=== PATIENT | female | born 1935 | race Caucasian/White ===

== ENCOUNTER 2017-10-25 12:04 | Inpatient (IN) | payer OTHER ==
[~2017-10-25] VITALS: Ht 172.7 cm; Wt 78.2 kg
[~2017-10-25 12:04] MED LIST: ALT2.5 PO; CALCIUM1 TA1 PO; FLAGYL500 MG PO; KLOR-CON 88 MEQ PO; KLOR-CON20 MEQ PO; LAC PO; LEVAQUIN750 MG PO; LIPI20 PO; PLA75 PO; PREDNISONE20 MG PO; SINGULAIR10 MG PO; WILL BRING LIST
[2017-10-25 12:58] LABS: UA SPECIFIC GRAVITY 1.015 (1.005-1.035); microscopic required? YES; urine erythrocyte TRACE (NEGATIVE)
[2017-10-25 13:30] LABS: PLATELET COUNT 234 x10^3mcL (130-400)
[2017-10-25 13:37] LABS: BASOPHIL % 0 % (0-2); RED CELL DISTRIBUTION WIDTH 15.7 % (11.5-14.5)
[2017-10-25 14:09] LABS: ALKALINE PHOSPHATASE 80 U/L (46-116); ALT/SGPT 30 U/L (14-59); AST/SGOT 15 U/L (15-37); BILIRUBIN TOTAL 0.6 mg/dL (0.20-1.00); CALCIUM 8.2 mg/dL (8.5-10.1); CARBON DIOXIDE 24.1 mmol/L (21-32); CHLORIDE SERUM 104 mmol/L (98-107); CREATININE SERUM 0.9 mg/dL (0.6-1.0); GLUCOSE SERUM 134 mg/dL (74-106); LIPASE 91 IU/L (73-393); POTASSIUM SERUM 3.7 mmol/L (3.5-5.1); SODIUM SERUM 140 mmol/L (136-145)
[2017-10-25 14:14] LABS: FREE T4 1.16 ng/dL (0.76-1.46)
[2017-10-25 16:18] LABS: MAGNESIUM 1.7 mg/dL (1.8-2.4); PHOSPHOROUS 3.1 mg/dL (2.5-4.9)
[2017-10-25 17:02] VITALS: BP 107/63
[2017-10-25] MEDS ORDERED: FERROUS SULFAT325 M2 PO (17:24)
[2017-10-25] MEDS ORDERED: ZYRTEC10 MG PO (17:25)
[2017-10-25 19:52] VITALS: BP 108/68
[2017-10-25 22:05] VITALS: BP 113/55
[2017-10-26] VITALS (8 sets, daily range): BP systolic 95–132; BP diastolic 52–73; Ht 172.7 cm; Wt 78.2 kg
[2017-10-26 05:12] LABS: BASOPHIL % 0.7 % (0-2); PLATELET COUNT 213 x10^3mcL (130-400)
[2017-10-26 05:19] LABS: RED CELL DISTRIBUTION WIDTH 15.8 % (11.5-14.5)
[2017-10-26 05:20] LABS: CALCIUM 7.8 mg/dL (8.5-10.1); CARBON DIOXIDE 23.6 mmol/L (21-32); CHLORIDE SERUM 108 mmol/L (98-107); CREATININE SERUM 0.8 mg/dL (0.6-1.0); GLUCOSE SERUM 126 mg/dL (74-106); MAGNESIUM 1.9 mg/dL (1.8-2.4); PHOSPHOROUS 2.9 mg/dL (2.5-4.9); POTASSIUM SERUM 3.4 mmol/L (3.5-5.1); SODIUM SERUM 142 mmol/L (136-145)
[2017-10-27] VITALS (8 sets, daily range): BP systolic 94–141; BP diastolic 53–78
[2017-10-27 06:56] LABS: BASOPHIL % 0.2 % (0-2); PLATELET COUNT 185 x10^3mcL (130-400)
[2017-10-27 07:03] LABS: CALCIUM 7.8 mg/dL (8.5-10.1); CARBON DIOXIDE 24.6 mmol/L (21-32); CHLORIDE SERUM 107 mmol/L (98-107); CREATININE SERUM 0.7 mg/dL (0.6-1.0); GLUCOSE SERUM 141 mg/dL (74-106); MAGNESIUM 2.2 mg/dL (1.8-2.4); PHOSPHOROUS 1.9 mg/dL (2.5-4.9); POTASSIUM SERUM 3.3 mmol/L (3.5-5.1); SODIUM SERUM 140 mmol/L (136-145)
[2017-10-27 14:32] LABS: AMYLASE 29 U/L (25-115); LIPASE 68 IU/L (73-393)
[2017-10-28 03:10] VITALS: BP 129/65
[2017-10-28 05:40] LABS: PLATELET COUNT 199 x10^3mcL (130-400)
[2017-10-28 05:45] LABS: BASOPHIL % 0 % (0-2); RED CELL DISTRIBUTION WIDTH 15.9 % (11.5-14.5)
[2017-10-28 06:06] LABS: CALCIUM 8.3 mg/dL (8.5-10.1); CARBON DIOXIDE 23.8 mmol/L (21-32); CHLORIDE SERUM 107 mmol/L (98-107); CREATININE SERUM 0.8 mg/dL (0.6-1.0); GLUCOSE SERUM 245 mg/dL (74-106); POTASSIUM SERUM 4.4 mmol/L (3.5-5.1); SODIUM SERUM 141 mmol/L (136-145)
[2017-10-28 07:30] VITALS: BP 100/66
[2017-10-28 11:30] VITALS: BP 128/67
[2017-10-28 20:49] VITALS: BP 134/65
[2017-10-29 06:30] VITALS: BP 120/57
[2017-10-29 08:14] VITALS: BP 120/57
[2017-10-29 09:19] VITALS: BP 131/63
[2017-10-29 12:28] VITALS: BP 118/52
[2017-10-29] MEDS ORDERED: AMIODARONE HCL200 MG PO (12:55)
[2017-10-29] MEDS ORDERED: LEVAQUIN250 M1 PO (12:56)
[2017-10-29] MEDS ORDERED: ASPIR 8181 MG PO (12:57)
[2017-10-29] MEDS ORDERED: AMIODARONE HYD200 M1 PO (12:57)
[2017-10-29 13:36] VITALS: BP 118/52
== END 2017-10-29 14:20 | disposition home or self-care (01) | DRG 871 ==
LOC: ED 12:04 → IC 14:35 → DU 10-26 12:27 → IC 10-27 09:02 → DU 10-28 15:45
PROVIDERS: Emergency Medicine; Internal Medicine
DX: A41.9 Sepsis, unspecified organism (principal); N17.0 Acute kidney failure with tubular necrosis; N39.0 Urinary tract infection, site not specified; I48.92 Unspecified atrial flutter; E44.1 Mild protein-calorie malnutrition; D68.69 Other thrombophilia; R65.20 Severe sepsis without septic shock; I48.91 Unspecified atrial fibrillation; E86.0 Dehydration; E83.42 Hypomagnesemia; E83.39 Other disorders of phosphorus metabolism; E83.51 Hypocalcemia; E87.6 Hypokalemia; E11.65 Type 2 diabetes mellitus with hyperglycemia; K59.00 Constipation, unspecified; J45.909 Unspecified asthma, uncomplicated; M19.90 Unspecified osteoarthritis, unspecified site; Z68.25 Body mass index [BMI] 25.0-25.9, adult; Z79.52 Long term (current) use of systemic steroids; Z79.4 Long term (current) use of insulin
CPT/HCPCS: 83880; 84439; 94150; 97110-GP; 97116-GP; 97530-GP; 97535-GP; C9113; J0282; J1160; J1644; J1720; J1815; J1885; J1956; J2405; J2543; J2550; J2920; J3370; J3490; J7030; J7512; J7620; Q0092; Q0162; Q0163; Q9958; Q9966; Q9967

== ENCOUNTER 2017-12-08 09:47 | Inpatient (IN) | payer OTHER ==
[~2017-12-08] VITALS: Ht 160 cm; Wt 78.0 kg
[~2017-12-08 09:47] MED LIST changes: +AMIODARONE HCL200 MG PO; +AMIODARONE HYD200 M1 PO; +ASPIR 8181 MG PO; +FERROUS SULFAT325 M2 PO; +LEVAQUIN250 M1 PO; +ZYRTEC10 MG PO
[2017-12-08 09:50] VITALS: Ht 160 cm; Wt 78.0 kg
[2017-12-08 10:41] LABS: PLATELET COUNT 237 x10^3mcL (130-400)
[2017-12-08 10:42] LABS: RED CELL DISTRIBUTION WIDTH 16.1 % (11.5-14.5)
[2017-12-08 11:12] LABS: CALCIUM 8.9 mg/dL (8.5-10.1); CARBON DIOXIDE 23.5 mmol/L (21-32); CHLORIDE SERUM 103 mmol/L (98-107); CREATININE SERUM 1.2 mg/dL (0.6-1.0); GLUCOSE SERUM 237 mg/dL (74-106); POTASSIUM SERUM 4.1 mmol/L (3.5-5.1); SODIUM SERUM 139 mmol/L (136-145)
[2017-12-08 11:17] LABS: ALKALINE PHOSPHATASE 80 U/L (46-116); ALT/SGPT 34 U/L (14-59); AST/SGOT 22 U/L (15-37); BILIRUBIN TOTAL 0.75 mg/dL (0.20-1.00); TOTAL PROTEIN, SERUM 6.5 g/dL (6.4-8.2)
[2017-12-08 11:36] LABS: ALBUMIN 3.1 g/dL (3.4-5.0)
[2017-12-08 12:13] LABS: BAND NEUTROPHIL 22 % (0-10); BASOPHIL 0 % (0-2); METAMYELOCTE 1 % (0-2); MONOCYTE 4 % (0-7); SEGMENTED NEUTROPHILS 68 % (37-75)
[2017-12-08 12:14] LABS: PLATELET MORPHOLOGY LARGE PLATELET SEEN; rbc morphology (normal/abnorm) NORMAL (NORMAL)
[2017-12-08 12:54] LABS: UA SPECIFIC GRAVITY <=1.005 (1.005-1.035); microscopic required? YES; urine erythrocyte TRACE (NEGATIVE)
[2017-12-08 13:47] VITALS: BP 114/51
[2017-12-08 14:36] LABS: FREE T4 1.23 ng/dL (0.76-1.46); FREE THYROXINE INDEX 3.3 ug/dL (1.4-4.5); T4(THYROXINE) 9.1 ug/dL (4.7-13.3)
[2017-12-08 14:38] LABS: T3 TOTAL 0.8 ng/mL
[2017-12-08 14:52] LABS: MAGNESIUM 1.5 mg/dL (1.8-2.4); PHOSPHOROUS 4.6 mg/dL (2.5-4.9)
[2017-12-08 14:54] LABS: CHOLESTEROL/HDL RATIO 2.1
[2017-12-08 16:53] VITALS: BP 100/57; BP 114/51
[2017-12-08 20:06] LABS: AMPHETAMINE QUAL UR NONE DETECTED (See below)
[2017-12-09 05:47] VITALS: BP 139/75
[2017-12-09 06:49] LABS: PLATELET COUNT 197 x10^3mcL (130-400)
[2017-12-09 06:55] LABS: CALCIUM 7.5 mg/dL (8.5-10.1); CARBON DIOXIDE 23.4 mmol/L (21-32); CHLORIDE SERUM 106 mmol/L (98-107); CREATININE SERUM 0.8 mg/dL (0.6-1.0); GLUCOSE SERUM 268 mg/dL (74-106); MAGNESIUM 2.4 mg/dL (1.8-2.4); POTASSIUM SERUM 4.5 mmol/L (3.5-5.1); SODIUM SERUM 140 mmol/L (136-145)
[2017-12-09 08:16] LABS: BASOPHIL % 0 % (0-2); RED CELL DISTRIBUTION WIDTH 16.9 % (11.5-14.5)
[2017-12-09 08:24] VITALS: BP 123/61
[2017-12-09 12:06] VITALS: BP 109/53
[2017-12-09 16:58] VITALS: BP 113/50
[2017-12-09 21:12] VITALS: BP 114/47
[2017-12-10 05:47] VITALS: BP 123/56
[2017-12-10 08:44] VITALS: BP 120/56
[2017-12-10 12:41] LABS: PLATELET COUNT 208 x10^3mcL (130-400)
[2017-12-10 12:42] LABS: BASOPHIL % 0 % (0-2); RED CELL DISTRIBUTION WIDTH 16.6 % (11.5-14.5)
[2017-12-10 12:46] LABS: CALCIUM 8.8 mg/dL (8.5-10.1); CARBON DIOXIDE 28.8 mmol/L (21-32); CHLORIDE SERUM 108 mmol/L (98-107); CREATININE SERUM 0.8 mg/dL (0.6-1.0); GLUCOSE SERUM 240 mg/dL (74-106); POTASSIUM SERUM 4.5 mmol/L (3.5-5.1); SODIUM SERUM 143 mmol/L (136-145)
[2017-12-10 13:40] VITALS: BP 132/60
[2017-12-10 17:18] VITALS: BP 130/64
[2017-12-10 20:39] VITALS: BP 147/77
[2017-12-11 05:33] VITALS: BP 138/64
[2017-12-11 06:50] LABS: BASOPHIL % 0.3 % (0-2); CARBON DIOXIDE 30.8 mmol/L (21-32); CHLORIDE SERUM 109 mmol/L (98-107); CREATININE SERUM 0.7 mg/dL (0.6-1.0); GLUCOSE SERUM 103 mg/dL (74-106); PLATELET COUNT 201 x10^3mcL (130-400); POTASSIUM SERUM 3.5 mmol/L (3.5-5.1); SODIUM SERUM 146 mmol/L (136-145)
[2017-12-11 06:53] LABS: RED CELL DISTRIBUTION WIDTH 16.5 % (11.5-14.5)
[2017-12-11 09:44] VITALS: BP 131/65
[2017-12-11 09:58] VITALS: BP 131/65
[2017-12-11] MEDS ORDERED: LEVAQUIN750 MG PO (10:45)
[2017-12-11] MEDS ORDERED: FLA500 PO (10:45)
[2017-12-11] MEDS ORDERED: LAC PO (10:45)
[2017-12-11 11:00] VITALS: BP 131/65
== END 2017-12-11 11:56 | disposition home or self-care (01) | DRG 853 ==
LOC: ED 09:47 → DU 12:43 → MU 12:43 → EDBEDREQ 12:58 → DU 13:33 → MU 13:36 → DU 13:47
PROVIDERS: Emergency Medicine; Family Medicine; General Practice; Surgery
PROC: 0DTJ4ZZ Resection of Appendix, Percutaneous Endoscopic Approach (ICD-10-PCS; principal; 2017-12-08 18:00)
DX: A41.9 Sepsis, unspecified organism (principal); N17.0 Acute kidney failure with tubular necrosis; K35.32 Acute appendicitis with perforation, localized peritonitis, and gangrene, without abscess; E44.0 Moderate protein-calorie malnutrition; I31.3 Pericardial effusion (noninflammatory); R65.20 Severe sepsis without septic shock; E11.8 Type 2 diabetes mellitus with unspecified complications; E83.42 Hypomagnesemia; J45.909 Unspecified asthma, uncomplicated; Z66 Do not resuscitate; Z99.81 Dependence on supplemental oxygen; Z68.24 Body mass index [BMI] 24.0-24.9, adult
CPT/HCPCS: 82962; 84439; 90658; 94150; J0330; J0696; J1170; J2175; J2250; J2543; J2704; J3010; J3475; J3490; J7030; J7512; J7620; Q0092; Q0163; Q9967

== ENCOUNTER 2018-05-17 20:34 | Inpatient (IN) | payer OTHER ==
[~2018-05-17] VITALS: Ht 160 cm; Wt 74.4 kg
[~2018-05-17 20:34] MED LIST changes: +FLA500 PO
[2018-05-17 20:36] VITALS: Ht 160 cm; Wt 74.4 kg
[2018-05-17 21:00] LABS: PLATELET COUNT 228 x10^3mcL (130-400)
[2018-05-17 21:04] LABS: BASOPHIL % 0 % (0-2); RED CELL DISTRIBUTION WIDTH 16.8 % (11.5-14.5)
[2018-05-17 21:22] LABS: CALCIUM 9.5 mg/dL (8.5-10.1); CARBON DIOXIDE 24.7 mmol/L (21-32); CHLORIDE SERUM 102 mmol/L (98-107); CREATININE SERUM 1.1 mg/dL (0.6-1.0); GLUCOSE SERUM 141 mg/dL (74-106); POTASSIUM SERUM 4.3 mmol/L (3.5-5.1); SODIUM SERUM 138 mmol/L (136-145)
[2018-05-17 21:26] LABS: ALKALINE PHOSPHATASE 122 U/L (46-116); ALT/SGPT 28 U/L (14-59); AST/SGOT 23 U/L (15-37); BILIRUBIN TOTAL 0.6 mg/dL (0.20-1.00); TOTAL PROTEIN, SERUM 7.1 g/dL (6.4-8.2)
[2018-05-17 21:28] LABS: ALBUMIN 3.1 g/dL (3.4-5.0)
[2018-05-17 23:03] LABS: PHOSPHOROUS 3.3 mg/dL (2.5-4.9)
[2018-05-17 23:13] LABS: FREE T4 1.17 ng/dL (0.76-1.46); FREE THYROXINE INDEX 3.1 ug/dL (1.4-4.5); T4(THYROXINE) 9.1 ug/dL (4.7-13.3)
[2018-05-17 23:36] LABS: microscopic required? YES; urine erythrocyte 1+ (NEGATIVE)
[2018-05-17 23:43] LABS: AMPHETAMINE QUAL UR NONE DETECTED (See below)
[2018-05-17 23:50] VITALS: BP 123/75
[2018-05-17 23:55] VITALS: BP 123/75
[2018-05-18 00:30] VITALS: BP 123/75
[2018-05-18 00:49] LABS: T3 TOTAL 1.2 ng/mL
[2018-05-18 05:50] VITALS: BP 122/63
[2018-05-18 06:57] LABS: PLATELET COUNT 200 x10^3mcL (130-400)
[2018-05-18 07:14] LABS: CALCIUM 8.6 mg/dL (8.5-10.1); CARBON DIOXIDE 25.9 mmol/L (21-32); CHLORIDE SERUM 106 mmol/L (98-107); CREATININE SERUM 0.9 mg/dL (0.6-1.0); GLUCOSE SERUM 322 mg/dL (74-106); MAGNESIUM 2.1 mg/dL (1.8-2.4); POTASSIUM SERUM 4.7 mmol/L (3.5-5.1); SODIUM SERUM 142 mmol/L (136-145)
[2018-05-18 07:21] LABS: RED CELL DISTRIBUTION WIDTH 16.5 % (11.5-14.5)
[2018-05-18 08:50] VITALS: BP 101/56
[2018-05-18 10:49] LABS: BAND NEUTROPHIL 18 % (0-10); BASOPHIL 0 % (0-2); MONOCYTE 2 % (0-7); SEGMENTED NEUTROPHILS 78 % (37-75)
[2018-05-18 10:51] LABS: PLATELET MORPHOLOGY LARGE PLATELET SEEN; rbc morphology (normal/abnorm) NORMAL (NORMAL)
[2018-05-18 16:30] VITALS: BP 115/52
[2018-05-18 21:10] VITALS: BP 121/56
[2018-05-19 05:09] VITALS: BP 134/66
[2018-05-19 06:22] LABS: PLATELET COUNT 210 x10^3mcL (130-400)
[2018-05-19 06:39] LABS: CALCIUM 8.3 mg/dL (8.5-10.1); CARBON DIOXIDE 24.6 mmol/L (21-32); CHLORIDE SERUM 110 mmol/L (98-107); CREATININE SERUM 0.6 mg/dL (0.6-1.0); GLUCOSE SERUM 305 mg/dL (74-106); MAGNESIUM 2.2 mg/dL (1.8-2.4); PHOSPHOROUS 2.6 mg/dL (2.5-4.9); POTASSIUM SERUM 3.8 mmol/L (3.5-5.1); SODIUM SERUM 143 mmol/L (136-145)
[2018-05-19 06:48] LABS: RED CELL DISTRIBUTION WIDTH 16.5 % (11.5-14.5)
[2018-05-19 08:30] VITALS: BP 110/60
[2018-05-19 11:37] LABS: BAND NEUTROPHIL 12 % (0-10); BASOPHIL 0 % (0-2); MONOCYTE 4 % (0-7); SEGMENTED NEUTROPHILS 81 % (37-75)
[2018-05-19 11:38] LABS: PLATELET MORPHOLOGY PLATELETS NORMAL; rbc morphology (normal/abnorm) ABNORMAL (NORMAL)
[2018-05-19 12:02] VITALS: BP 121/73
[2018-05-19] MEDS ORDERED: BACDS PO (12:30)
[2018-05-19 13:24] VITALS: BP 121/73
== END 2018-05-19 14:35 | disposition home or self-care (01) | DRG 871 ==
LOC: ED 20:34 → DU 22:13
PROVIDERS: Emergency Medicine; ADMIT Internal Medicine
DX: A41.9 Sepsis, unspecified organism (principal); J18.9 Pneumonia, unspecified organism; J96.01 Acute respiratory failure with hypoxia; N17.0 Acute kidney failure with tubular necrosis; N39.0 Urinary tract infection, site not specified; E44.0 Moderate protein-calorie malnutrition; J45.901 Unspecified asthma with (acute) exacerbation; E87.4 Mixed disorder of acid-base balance; E87.2 Acidosis; E11.65 Type 2 diabetes mellitus with hyperglycemia; I10 Essential (primary) hypertension; Z68.25 Body mass index [BMI] 25.0-25.9, adult; R65.20 Severe sepsis without septic shock
CPT/HCPCS: 82962; 83880; 84439; 87804; 94150; J0696; J1815; J2543; J2920; J2930; J7030; J7620; J7626; Q0092

== ENCOUNTER 2018-08-08 21:11 | Inpatient (IN) | payer OTHER ==
[~2018-08-08] VITALS: Ht 172.7 cm; Wt 71.7 kg
[~2018-08-08 21:11] MED LIST changes: +BACDS PO
[2018-08-08 21:22] VITALS: Ht 172.7 cm; Wt 71.7 kg
--- NOTE | 2018-08-08 21:22 | NUR ---
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 PER PT HISTORY OF COPD AND PT STATES "IT FEELS LIKE A COPD FLARE UP". PT ABLE TO SPEAK FULL CLEAR SENTENCES BUT STILL C/O OF SOB. PT A&0X4 IN NAD. IV PLACED TO LEFT WRIST FINE DINING SERVER. PT PLACED ON 6L VIA NC. PER MEDIC PT TOOK ALBUTEROL TREATMENT FINE DINING SERVER TO ASSIST WITH SOB WITH MINIMAL IMPROVEMENT. AWAITING MSE. WILL CONTINUE TO MONITOR.
--- NOTE | 2018-08-08 22:32 | NUR ---
LAB AT BEDSIDE.
--- NOTE | 2018-08-08 22:40 | NUR ---
RT AT BEDSIDE FOR BREATHING TREATMENT
[2018-08-08 22:53] LABS: BASOPHIL % 0.7 % (0-2); PLATELET COUNT 227 x10^3mcL (130-400)
[2018-08-08 22:56] LABS: RED CELL DISTRIBUTION WIDTH 16.3 % (11.5-14.5)
[2018-08-08 23:04] LABS: CALCIUM 9.3 mg/dL (8.5-10.1); CARBON DIOXIDE 25.9 mmol/L (21-32); CHLORIDE SERUM 101 mmol/L (98-107); CREATININE SERUM 0.9 mg/dL (0.6-1.0); GLUCOSE SERUM 157 mg/dL (74-106); POTASSIUM SERUM 4.3 mmol/L (3.5-5.1); SODIUM SERUM 137 mmol/L (136-145)
[2018-08-08 23:08] LABS: ALKALINE PHOSPHATASE 112 U/L (46-116); ALT/SGPT 47 U/L (14-59); AST/SGOT 23 U/L (15-37); BILIRUBIN TOTAL 0.8 mg/dL (0.20-1.00); TOTAL PROTEIN, SERUM 6.5 g/dL (6.4-8.2)
[2018-08-08 23:09] LABS: ALBUMIN 3.1 g/dL (3.4-5.0)
[2018-08-08 23:20] LABS: CK-MB 0.9 ng/mL (0-3.6)
--- NOTE | 2018-08-08 23:25 | NUR ---
ASSISTED PT TO BEDSIDE COMMODE. PT STEADY ON FEET, MINIMAL ASSITANCE NEEDED. PT ASSITED BACK TO BED. NO INCIDENCES NOTED. CM AND [address] FAMILY AT BEDSIDE. WILL CONTINUE TO MONITOR.
[2018-08-09 01:11] LABS: UA SPECIFIC GRAVITY <=1.005 (1.005-1.035); microscopic required? YES; urine erythrocyte TRACE (NEGATIVE)
--- NOTE | 2018-08-09 02:19 | NUR ---
REPORT CALLED TO JESSICA THOMPSON.
[2018-08-09 02:20] LABS: CHOLESTEROL/HDL RATIO 2.4
--- NOTE | 2018-08-09 02:25 | NUR ---
PT TAKEN TO TELE BED 224B ACCOMPANIED BY CLARK SIMON AND GERRI RN. PT A&0X4, SPEAKING FULL CLEAR SENTENCES. PT IN NAD. BREATHING EVEN AND UNLABORED. ROCEPHIN IV ENDORSED TO JESSICA THOMPSON. PT TRANSFERED VIA [facility].
[2018-08-09 02:30] VITALS: BP 119/49
--- NOTE | 2018-08-09 02:30 | NUR ---
RECEIVED PT FROM ED. PT AOX4. DENIES DE LA TORRE/DIZZINESS. PLACED PT ON TELE #12, READING NSR. DENIES CP/PRESSURE. DENIES SOB/DIFFICULTY BREATHING, ON 3L NC. IV TO L. WRIST, INTACT AND PATENT. BED IN LOWEST POSITION. CALL LIGHT WITHIN REACH. WILL CONTINUE TO MONITOR.
[2018-08-09 02:40] VITALS: BP 119/49
--- NOTE | 2018-08-09 04:35 | NUR ---
PT RESTING IN BED. RR EVEN AND UNLABORED. NO ACUTE DISTRESS NOTED. CALL LIGHT WITHIN REACH. BED IN LOWEST POSITIN. WILL CONTINUE TO MONITOR.
--- NOTE | 2018-08-09 06:35 | NUR ---
PT IV LEAKING. NO REDNESS/SWELLING NOTED. IV CATHETER REMOVED, TIP INTACT.
[2018-08-09 07:07] LABS: BASOPHIL % 0.2 % (0-2); PLATELET COUNT 222 x10^3mcL (130-400)
[2018-08-09 07:10] LABS: RED CELL DISTRIBUTION WIDTH 16.7 % (11.5-14.5)
[2018-08-09 07:27] LABS: CALCIUM 9.1 mg/dL (8.5-10.1); CARBON DIOXIDE 21.7 mmol/L (21-32); CHLORIDE SERUM 106 mmol/L (98-107); CREATININE SERUM 0.9 mg/dL (0.6-1.0); GLUCOSE SERUM 352 mg/dL (74-106); MAGNESIUM 2.2 mg/dL (1.8-2.4); PHOSPHOROUS 4.4 mg/dL (2.5-4.9); POTASSIUM SERUM 4.6 mmol/L (3.5-5.1); SODIUM SERUM 141 mmol/L (136-145)
--- NOTE | 2018-08-09 07:40 | NUR ---
PATIENT RESTING IN BED, NO ACUTE DISTRESS NOTED. FAMILY AT BEDSIDE. PATIENT DENIES SOB, ON 2L NC. TELE MONITOR IN PLACE, DENIES CHEST PAIN. PATIENT IS AMBULATORY. NS IV INFUSING AT 70ML/HR TO RFA, IV SITE CDI & PATENT, NO S/S OF INFILTRATION. CALL LIGHT WITHIN REACH, BED IN LOW POSITION, WILL CONTINUE TO MONITOR FOR CHANGES.
[2018-08-09 09:50] VITALS: BP 107/56
--- NOTE | 2018-08-09 09:55 | NUR ---
ASSISTED PATIENT TO THE BATHROOM, STEADY, SLOW GAIT NOTED. PATIENT FELT SOB ON EXCERTION, WHEEZES NOTED ON EXPIRATION. RESPIRATORY THERAPIST NOTIFIED. WILL CONTINUE TO MONITOR FOR CHANGES. CALL LIGHT WITHIN REACH, BED IN LOW POSITION FOR SAFETY PRECAUTION.
--- NOTE | 2018-08-09 11:20 | NUR ---
PATIENT AMBULATING HALLWAYS WITH PHYSICAL THERAPY AT THIS TIME.
[2018-08-09] MEDS ORDERED: KEFLEX500 M1 PO (12:41)
[2018-08-09] MEDS ORDERED: LAC PO (12:42)
[2018-08-09] MEDS ORDERED: MEDDP PO (12:42)
[2018-08-09 13:26] VITALS: BP 119/56
--- NOTE | 2018-08-09 14:10 | NUR ---
PATIENT WAS DISCHARGED HOME, TAKEN DOWN VIA WHEELCHAIR BY CAUSTIC ROOM OPERATOR. PATIENT DENIES SOB, 95% PULSE OX ON ROOM AIR. PATIENT AND RECEIVED COPY OF DISCHARGED INSTRUCTIONS. PATIENT & HUSBANDS UNDERSTAND AND AGREE WITH PLAN OF CARE AND INSTRUCTIONS, INCLUDING FOLLOW UP CARE & MEDICATIONS. IV TO RFA REMOVED, CATH INTACT. TELE MONITOR AND ARMBAND REMOVED. ALL QUESTIONS AND CONCERNS ADDRESSED. PATIENT TOOK HOME ALL PERSONAL BELONGINGS.
== END 2018-08-09 14:10 | disposition home or self-care (01) | DRG 190 ==
LOC: ED 21:11 → DU 08-09 01:07 → MU 08-09 01:07
PROVIDERS: Emergency Medicine; ADMIT Internal Medicine
DX: J44.1 Chronic obstructive pulmonary disease with (acute) exacerbation (principal); J96.01 Acute respiratory failure with hypoxia; N17.0 Acute kidney failure with tubular necrosis; N39.0 Urinary tract infection, site not specified; E44.0 Moderate protein-calorie malnutrition; E11.65 Type 2 diabetes mellitus with hyperglycemia; D72.829 Elevated white blood cell count, unspecified; I10 Essential (primary) hypertension; F03.90 Unspecified dementia, unspecified severity, without behavioral disturbance, psychotic disturbance, mood disturbance, and anxiety; M19.90 Unspecified osteoarthritis, unspecified site; Z99.81 Dependence on supplemental oxygen; Z68.23 Body mass index [BMI] 23.0-23.9, adult; Z79.84 Long term (current) use of oral hypoglycemic drugs
CPT/HCPCS: 82962; 83880; G0378; J0696; J2920; J2930; J7030; J7620

== ENCOUNTER 2018-12-02 15:49 | Inpatient (IN) | payer OTHER ==
[~2018-12-02] VITALS: Ht 172.7 cm; Wt 68.0 kg
[~2018-12-02 15:49] MED LIST changes: +KEFLEX500 M1 PO; +MEDDP PO
--- NOTE | 2018-12-02 16:28 | NUR ---
PT PRESENTS TO ED BIBA WITH C/O SOB AND ALOC. PER EMS PT HAS HX OF COPD AND DEMENTIA, BUT PT STS PT HAS BECOME MORE SOB AND CONFUSED TODAY. STS PT HAS BEEN SICK SINCE TUESDAY AND HAS BEEN USING HOME O2 MORE OFTEN. EMS STS PT IS ALERT TO PERSON AND PLACE BUT RESPONDED PRESIDENT YARITZA IS THE PRESIDENT AND DOES NOT KNOW THE YEAR. PER THIS IS PT NORM. PER EMS PT VSS IN ROUTE WITH HR OF 112, BLOOD SUGAR 272, 12 LEAD NORMAL. EMS REPORT GIVEN PT ALBUTEROL AND ATROVENT IN ROUTE AND PT WHEEZING RESOLVED. PT ON FULL CM, AAOX2, INCREASED WORK OF BREATHING NOTED. WILL CONTINUE TO MONITOR.
--- NOTE | 2018-12-02 16:37 | NUR ---
PER PT THEIR DOCTOR TOLD THEM ONLY TO GIVE PT O2 WHEN 02 LEVEL IS BELOW 90%. PT 02 SAT IS CURRENTLY 93%, PT STS THAT IS PT NORM.
[2018-12-02 17:13] LABS: BASOPHIL % 0.3 % (0-2); PLATELET COUNT 187 x10^3mcL (130-400)
[2018-12-02 17:14] LABS: RED CELL DISTRIBUTION WIDTH 16.7 % (11.5-14.5)
[2018-12-02 17:22] LABS: CALCIUM 9.1 mg/dL (8.5-10.1); CARBON DIOXIDE 25.1 mmol/L (21-32); CHLORIDE SERUM 101 mmol/L (98-107); GLUCOSE SERUM 199 mg/dL (74-106); POTASSIUM SERUM 3.9 mmol/L (3.5-5.1); SODIUM SERUM 135 mmol/L (136-145)
[2018-12-02 17:27] LABS: ALKALINE PHOSPHATASE 106 U/L (46-116); ALT/SGPT 24 U/L (14-59); AST/SGOT 22 U/L (15-37); BILIRUBIN TOTAL 0.85 mg/dL (0.20-1.00); TOTAL PROTEIN, SERUM 7.1 g/dL (6.4-8.2)
--- NOTE | 2018-12-02 17:50 | NUR ---
PT AMBULATED TO BEDSIDE COMMODE TO ATTEMPT TO GIVE URINE SAMPLE. PT WAS UNABLE TO GIVE URINE.
[2018-12-02] MEDS ORDERED: ADVAIR DISKUS 51 AER (18:21)
[2018-12-02] MEDS ORDERED: VERAPAMIL HCL180 M1 (18:21)
[2018-12-02] MEDS ORDERED: SPIRIVA18 MC1 (18:21)
[2018-12-02] MEDS ORDERED: DONEPEZIL HYDROC5 M3 PO (18:22)
[2018-12-02] MEDS ORDERED: ASPIRIN ADULT L81 M5 PO (18:22)
[2018-12-02] MEDS ORDERED: LIPITOR40 MG PO (18:22)
[2018-12-02] MEDS ORDERED: PREDNISONE1 MG PO (18:22)
[2018-12-02 19:04] LABS: CHOLESTEROL/HDL RATIO 2.2
--- NOTE | 2018-12-02 19:30 | NUR ---
REPORT GIVEN TO DONNA ESPINO ON TELE UNIT TO ASSUME CARE OF PT.
--- NOTE | 2018-12-02 19:54 | NUR ---
RECEIVED PT FROM ED VIA [facility], CAME IN DUE TO SOB. AAOX2 (PERSON, PLACE AND BIRTHDATE). ABLE TO FOLLOW COMMANDS. NO SOB NOTED, LUNG SOUNDS CTA. O2 SAT=96% ON RA. DENIES CHEST PAIN/PRESSURE,NSR ON THE MONITOR. DENIES ABDOMINAL DISCOMFORT. BOWEL SOUNDS ACTIVE. VOIDS. IV SITE PATENT AND INTACT. RECEIVED PT FROM ED W/ AZITHROMYCIN ONGOING. SIDE RAILS UPX2. CALL LIGHT ON REACH. BED ALARM ON. BED ON THE LOWEST POSITION. WILL CONT TO MONITOR
[2018-12-02 20:16] VITALS: BP 105/87
--- NOTE | 2018-12-02 22:17 | NUR ---
PT AMBULATED TO THE BATHROOM WITH MINIMAL ASSISTANCE, NOTED PT IS SHORT OF BREATH. ASSISTED PT BACK TO THE BED, PLACED ON 3LPM/NC, O2 SAT=94%, RR=24. RESPIRATORY THERAPIST MADE AWARE.
[2018-12-02 22:38] VITALS: BP 105/87
--- NOTE | 2018-12-02 22:52 | NUR ---
PT STATED THAT HER BREATHING IS BETTER AFTER THE BREATHING TREATMENT WAS GIVEN BY THE RESPIRATORY THERAPIST.
--- NOTE | 2018-12-03 00:20 | NUR ---
PT'S ZNJH=634.2 AND IX=738. COOLING MEASURES INITIATED AND MEDICATED W/ TYLENOL 650 MG PO ORDERED
--- NOTE | 2018-12-03 00:55 | NUR ---
TEMP RE-CHECKED=99.9
[2018-12-03 05:25] VITALS: BP 128/59
--- NOTE | 2018-12-03 06:28 | NUR ---
ASSISTED PT TO AMBULATE IN THE BATHROOM, ABLE TO VOID WITHOUT DIFFICULTY. ASSISTED PT BACK TO BED. NO C/O PAIN. SOB NOTED ON MODERATE EXERTION. IV SITE PATENT AND INTACT. URINE SPECIMEN SENT TO LAB. NEEDS ARE ATTENDED. SIDE RAILS UPX2. CALL LIGHT ON REACH. BED ALARM ON. WILL ENDORSE TO INCOMING NURSE FOR CONTINUITY OF CARE
--- NOTE | 2018-12-03 07:10 | NUR ---
CARE ENDORSED TO INCOMING NURSE CRISTI FOR CONTINUITY OF CARE
--- NOTE | 2018-12-03 07:30 | NUR ---
RECEIVED PT AAOX2-3, CONFUSED AT TIMES. TELE [address] READING NSR WITH INTERMITTENT SINUS TACH UPON EXERTION. RESP EVEN, SHALLOW AND UNLABORED. PT HAS BILATERAL UPPER LOBES EXPIRATORY WHEEZE AND DIMINISHED BILATERALLY LOWER LOBES. ON O2 N/C AT 3 LPM. NO COUGH OR SOB NOTED. ABODOMEN SOFT, NONTENDER, NONDISTENDED. BOWEL SOUNDS ACTIVE X4. PT DENIES N/V. SKIN CDI, NO EDEMA. PERIPHERAL PULSES MODERATE. IVF RUNNING TO . SITE WNL. DENIES PAIN AND DISCOMFORT. CALL LIGHT WITHIN REACH. BED IN LOW POSITION. FALL PROTOCOL FOLLOWED.
[2018-12-03 07:45] LABS: UA SPECIFIC GRAVITY <=1.005 (1.005-1.035); microscopic required? YES; urine erythrocyte 1+ (NEGATIVE)
[2018-12-03 08:00] LABS: AMPHETAMINE QUAL UR NONE DETECTED (See below)
[2018-12-03 08:31] LABS: BASOPHIL % 0.1 % (0-2); PLATELET COUNT 174 x10^3mcL (130-400)
[2018-12-03 08:32] LABS: RED CELL DISTRIBUTION WIDTH 16.8 % (11.5-14.5)
[2018-12-03 08:53] LABS: CALCIUM 7.8 mg/dL (8.5-10.1); CARBON DIOXIDE 28.9 mmol/L (21-32); CHLORIDE SERUM 109 mmol/L (98-107); GLUCOSE SERUM 153 mg/dL (74-106); MAGNESIUM 2.1 mg/dL (1.8-2.4); PHOSPHOROUS 3.2 mg/dL (2.5-4.9); POTASSIUM SERUM 3.8 mmol/L (3.5-5.1); SODIUM SERUM 143 mmol/L (136-145)
--- NOTE | 2018-12-03 09:27 | NUR ---
SCHEDULED MEDS GIVEN AND TOLERATED WELL. PT RECEIVING BREATHING TX AT THIS TIME. NO RESP DISTRESS NOTED. VISITING AT BEDSIDE. CALL LIGHT WITHIN REACH.
[2018-12-03 09:36] VITALS: BP 120/62
--- NOTE | 2018-12-03 10:14 | NUR ---
DR. GAFFNEY MET WITH PT AND DISCUSSED POC. PT IS STAY ONE MORE MIDNIGHT AND THEN HER SUPPLEMENTAL OXYGEN WILL BE ASSESSED. PT NEEDS TO BE DOWN FROM O2 3 LPM TO 2 LPM BEFORE SHE CAN DISCHARGE HOME. PT STATED SHE HAS AN OXYGEN TAKE AT HOME THAT SHE USES PRN. PT AND PT'S AGREE WITH POC.
--- NOTE | 2018-12-03 11:24 | NUR ---
PT IS SLEEPING PEACEFULLY. RESP EVEN AND UNLABORED. N/C AT 3LPM INTACT. CALL LIGHT WITHIN REACH.
--- NOTE | 2018-12-03 11:55 | NUR ---
TITRATED O2 TO 2L NC. SPO2:95%. WILL MONITOR
[2018-12-03] MEDS ORDERED: NATURE'S BLEND F1 MG PO (12:02)
[2018-12-03] MEDS ORDERED: POTASSIUM CHLO10 ME2 PO (12:03)
--- NOTE | 2018-12-03 12:05 | NUR ---
LAB REPORTED THAT PT'S BLOOD CX IS POSITIVE FOR GRAM NEGATIVE RODS. PAGED DR. ARAGON AWAITING CALL BACK.
--- NOTE | 2018-12-03 12:21 | NUR ---
REPORTED TO DR. ARAGON THAT PT'S BLOOD CX IS POSITIVE FOR GRAM NEGATIVE RODS. NO NEW ORDERS AT THIS TIME. PT MADE AWARE.
--- NOTE | 2018-12-03 12:42 | NUR ---
TYLENOL 650MG PO GIVEN FOR TEMP 101.1F. COOLING MEASURES IN PLACE. DR. ARAGON MADE AWARE.
[2018-12-03 13:06] VITALS: BP 108/57
--- NOTE | 2018-12-03 13:17 | NUR ---
ROUTINE MUCINEX GIVEN. SPOKE TO DR. ARAGON, REQUESTED INCENTIVE SPIROMETER FOR PT. DR. ARAGON STATED ORDER WILL BE ADDED. PT MADE AWARE.
--- NOTE | 2018-12-03 13:24 | NUR ---
REASSESSED PT TEMP, NOW 99.1F. COOLING MEASURES IN PLACE. PT TAKING IN EXTRA FLUIDS. WILL CONTINUE TO MONITOR. CALL LIGHT WITHIN REACH. AT BEDSIDE.
--- NOTE | 2018-12-03 15:17 | NUR ---
TITRATED PT TO RA. SPO2:96%. WILL CONT.TO MONITOR
--- NOTE | 2018-12-03 16:25 | NUR ---
PLACED PT BACK ON O2 PER MD NOTE. RN NURSE CRISTI NOTIFIED
[2018-12-03 16:48] VITALS: BP 167/80
--- NOTE | 2018-12-03 18:25 | NUR ---
PT IS AAX4. PT IS NORMOTHERMIC AT THIS TIME. IVF RUNNING TO LH. SITE WNL PT DENIES PAIN AT THIS TIME. TELE [address] READING NSR. CALL LIGHT WITHIN REACH. BED IN LOWEST POSITION. FALL PROTOCOL FOLLOWED. WILL ENDORSE ALL CARE TO NOC RN.
--- NOTE | 2018-12-03 19:45 | NUR ---
RECEIVED RPT FROM DAY SHIFT NURSE, CRISTI THOMPSON. PT IS A/O X4. CAN BE FORGETFUL AT TIME. AT BEDSIDE. CAPITAN GRANDE BAND DANIELE. PT ON TELE #29 READING SR W PACS. VS ARE FOLLOWED: TEMP 102.4, HR 98, RR 18, BP 121/51, SAO2 99%. WILL MEDICATE TEMP PER MAR ORDER. DENIES CP. PULSES ARE PALPABLE ON ALL FOUR EXTREMITIES. NO EDEMA NOTED. BREATHING IS EVEN AND UNLABORED ON 2L NC. NO SIGNS OF RESP DISTRESS. LUNG SOUNDS DIMINISHED DANIELE. DANIELE EXP WHEEZES ON UPPER LOBES. ABD IS SOFT AND NONDISTENDED. BS ACTIVE IN ALL 4Q. LAST BM WAS TODAY. BRP WITH ASSIST. GENERALIZED WEAKNESS. SKIN INTACT. IV IN LH DRY, PATENT, AND INTACT. NO REDNESS OR SWELLING OBSERVED. DENIES PAIN AT THIS TIME. BED IN LOWEST POSITION. ENCOURAGED PT TO USE CALL LIGHT IF IN NEED OF ANY ASSISTANCE, HAVING ANY DISCOMFORT, OR HAVING SOB. WILL CONTINUE TO MONITOR.
--- NOTE | 2018-12-03 20:05 | NUR ---
ADMINISTERED TYLENOL PRN PER MAR ORDER FOR ORAL TEMP OF 102.4. COOLING MEASURES APPLIED. A/C ON, REMOVED BLANKETS, AND APPLIED ICE PACKS. WILL REASSESS EFFECTIVNESS.
[2018-12-03 20:41] VITALS: BP 121/51
--- NOTE | 2018-12-03 21:15 | NUR ---
TEMP IS NOW 99.5. COOLING MEASURES STILL APPLIED. BREATHING IS EVEN AND UNLABORED ON 2L NC. DENIES SOB OR PAIN. ENCOURAGED PT TO USE CALL LIGHT FOR ASSISTANCE, DISCOMFORT, OR SOB.
--- NOTE | 2018-12-03 22:30 | NUR ---
ASSISTED PT TO RESTROOM. DENIES PAIN OR SOB. BED IN LOWEST POSITION. CALL LIGHT WITHIN REACH. WILL CONTINUE TO MONITOR.
--- NOTE | 2018-12-04 01:21 | NUR ---
PT C/O OF SOB AFTER COMING BACK FROM BATHROOM. ENCOURAGED PT TO DEEP BREATHE. 2L NC REAPPLIED. SAO2 READS 98%, HR 80. TEMP IS 98.1. RAISED HOB. AFTER INTERVENTIONS, PT STATED SHE FELT BETTER. WILL CONTINUE TO MONITOR.
--- NOTE | 2018-12-04 04:29 | NUR ---
PTS ORAL TEMP IS 101.2F. MEDICATED PER APR ORDER. WILL REASSESS EFFECTIVESS. COOLING MEASURES APPLIED - REMOVED BLANKETS, TURN ON A/C, APPLIED COLD COMRPESSES.
--- NOTE | 2018-12-04 05:36 | NUR ---
RECHECKED PTS TEMPERATURE AFTER ADMINISTERING TYLENOL PRN PER APR ORDER. TEMP IS NOW 99.3F ORALLY. WILL CONTINUE TO MONITOR.
--- NOTE | 2018-12-04 05:41 | NUR ---
PT SLEPT IN INTERVALS THROUGHOUT THE NIGHT. COMPLIED WITH NURSING CARE THROUGHOUT SHIFT WITH NO ACUTE EVENTS OVERNIGHT. COMFORT AND SAFETY MEASURES MAINTAINED. ALL NEEDS ASSESSED AND ATTENDED TO. WILL CONTINUE TO MONITOR AND ENDORSE CARE TO DAY SHIFT NURSE.
[2018-12-04 05:53] VITALS: BP 119/53
--- NOTE | 2018-12-04 06:00 | NUR ---
HR ADMINISTRATIVE ASSISTANT CALLED STATING PTS HR WAS RANGING FROM 150-170S. CHECKED ON PT, WAS AMBULATING TO THE BATHROOM. WILL CONTINUE TO MONITOR
--- NOTE | 2018-12-04 06:10 | NUR ---
PT RETURNED FROM RESTROOM BUT TELE MONITOR STILL READ HR RANGING FROM 160-180S. WILL CONTINUE TO MONITOR AND ALERT
--- NOTE | 2018-12-04 06:15 | NUR ---
DR. OLIVAREZ MADE AWARE AND IS CHECKING PT. VS ARE FOLLOWED: TEMP 98.1, HR 167 SAO2 97%.
--- NOTE | 2018-12-04 06:37 | NUR ---
EKG DONE RESULT WAS A-FIB WITH RVR, PER DR Hernandez THAT SHE WANTS TO GIVE IVP ADENOSINE, AUTOMATIC SILK SCREEN PRINTER CALLED.
--- NOTE | 2018-12-04 06:37 | NUR ---
RAPID RESPONSE CALLED.
--- NOTE | 2018-12-04 06:50 | NUR ---
RESTAURANT EXPEDITOR CALLED, PLEASE SEE THE PAPER RECORD.
[2018-12-04 06:54] LABS: BASOPHIL % 0.2 % (0-2); PLATELET COUNT 160 x10^3mcL (130-400)
[2018-12-04 07:04] LABS: RED CELL DISTRIBUTION WIDTH 16.6 % (11.5-14.5)
[2018-12-04 07:15] LABS: CALCIUM 7.6 mg/dL (8.5-10.1); CARBON DIOXIDE 23.2 mmol/L (21-32); CHLORIDE SERUM 107 mmol/L (98-107); CREATININE SERUM 0.8 mg/dL (0.6-1.0); GLUCOSE SERUM 148 mg/dL (74-106); POTASSIUM SERUM 3.2 mmol/L (3.5-5.1); SODIUM SERUM 139 mmol/L (136-145)
--- NOTE | 2018-12-04 07:23 | NUR ---
CALLED PT'S AND UPDATES GIVEN THAT PT IS GOING TO ICU FOR CLOSELY MONITOR.
--- NOTE | 2018-12-04 07:25 | NUR ---
0647-CARDIZEN 20MG VIA IVP ADMINISTERED. 07-PER DR ARAGON THAT BOLUS PT WITH NS 500ML. BOLUS STARTED. 709-PER DR ARAGON THAT GIVE ANOTHER CARDIZEM 10 MG, MEDS GIVEN. 718-NEW ORDER RECEIVED THAT TRANSFER PT TO ICU.
--- NOTE | 2018-12-04 07:29 | NUR ---
REPORT GIVEN TO PAYMENT ANALYST, MARCO A, TO ASSUME CARE OF PT. ALL QUESTIONS AND CONCERNS ADDRESSED. ALL CARES ENDORSED. PT TRANSFERRED TO ICU BED 1, PER GREEN BUILDING MATERIALS DESIGNER WITH RNS X2.
[2018-12-04 07:30] VITALS: BP 105/64
--- NOTE | 2018-12-04 07:30 | NUR ---
RC'D PT FROM 2S VIA BED WITH NURSE PRESENT AT BEDSIDE. PT A/A/O/X4, SPEECH CLEAR AND APPROPRIATE. PT DENIES DE LA TORRE/DIZZINESS. ON TELE, AFIB, HR 123. PT DENIES CP. RESPIRATIONS EQUAL AND UNLABORED. WHEEZE NOTED BILAT. ON 2L O2 VIA NC, DENIES SOB. SPO2 97%, NO RESP DISTRESS NOTED. PALP PULSES, NO EDEMA NOTED. SKIN WARM TO TOUCH AND CONSISTENT WITH ETHNICITY. GENERALIZED WEAKNESS. PT ABLE TO REPOSITION SELF. ABDOMEN SOFT AND NONTENDER. AACTIVE BS. DENIES N/V. NO BM AT THIS TIME. PT VOIDS FREELY. SKIN W/D/I. PT DENIES PAIN AT THIS TIME. IV TO LH, PATENT AND INTACT. BED IN LOW POSITION. CALL LIGHT IN REACH. WILL CONT TO MONITOR
--- NOTE | 2018-12-04 08:16 | NUR ---
CARDIZEM IV DRIP INITIATED AT THIS TIME PER MD ORDER. HR 142. BP 113/59 (73). PT DENIES CP. WILL CONT TO MONITOR
--- NOTE | 2018-12-04 09:03 | NUR ---
HR 130, CARDIZEM INCREASED TO 10MG/HR PER MD ORDER. PT TOLERATING WELL. PT ASYMPTOMATIC. WILL CONT TO MONITOR.
--- NOTE | 2018-12-04 09:05 | NUR ---
DR GAFFNEY AND MED TEAM PRESENT AT BEDSIDE DISCUSSING POC WITH PT AND FAMILY. UPDATED ON PT CURRENT STATUS. OCCUPATIONAL THER TO SEE. NO NEW ORDERS AT THIS TIME
--- NOTE | 2018-12-04 09:10 | NUR ---
PATIENT ROUNDS WITH DR. GAFFNEY AND RESIDENTS. CHARGE NURSE AND PRIMARY NURSE AT BEDSIDE. UPDATES PROVIDED AND POC DISCUSSED. WILL CONTINUE TO MONITOR.
[2018-12-04 09:15] VITALS: Ht 172.7 cm; Wt 68.0 kg
--- NOTE | 2018-12-04 09:45 | NUR ---
HR 130'S, TITRATED CARDIZEM TO 15MG/HR MAX DOSE. WILL CONT TO MONITOR
--- NOTE | 2018-12-04 09:58 | NUR ---
AM MEDICATIONS GIVEN. PT TOLERATED WELL. RESPIRATIONS EQUAL AND UNLABORED. PT ON 2L O2 VIA NC, DENIES SOB. PT DENIES PAIN AT THIS TIME. BED IN LOW POSITION. CALL LIGHT IN REACH. WILL CONT TO MONITOR
--- NOTE | 2018-12-04 10:36 | NUR ---
HR 80-90'S, CARDIZEM DRIP TITRATED DOWN FROM 15 TO 10 MG/HR. DONNA WOO MADE AWARE. WILL CONTINUE TO MONITOR.
--- NOTE | 2018-12-04 11:07 | NUR ---
HR IN THE 80'S, CARDIZEM TITRATED FROM 10MG/HR TO 5MG/HR. WILL CONT TO MONITOR
[2018-12-04 11:45] VITALS: BP 117/60
--- NOTE | 2018-12-04 11:45 | NUR ---
RT PRESENT AT BEDSIDE FOR BREATHING TREATMENT. WILL CONT TO MONITOR
--- NOTE | 2018-12-04 11:50 | NUR ---
HR IN THE 80'S, CARDIZEM TURNED OFF AT THIS TIME. PT DENIES CP. NSR ON MONITOR. WILL CONT TO MONITOR CLOSELY
--- NOTE | 2018-12-04 13:20 | NUR ---
DR HERNANDEZ PRESENT AT BEDSIDE DISCUSSING POC WITH PT AND FAMILY. UPDATED ON PT CURRENT STATUS. ALL QUESTIONS AND CONCERNS ADDRESSED. NO NEW ORDERS AT THIS TIME.
--- NOTE | 2018-12-04 14:24 | NUR ---
PHYSICAL THERAPY NOTE ATTEMPTED FOR PHYSICAL THERAPY EVALUATION. PATIENT TRANSFERRED TO ICU PER FATMATA THOMPSON.
[2018-12-04 15:00] VITALS: BP 108/51
--- NOTE | 2018-12-04 15:37 | NUR ---
DR MIRZA PRESENT AT BEDSIDE DISCUSSING POC WITH PATIENT AND FAMILY. DR UPDATED ON PT CURRENT STATUS. ALL QUESTIONS AND CONCERNS ADDRESSED. NO NEW ORDERS AT THIS TIME
--- NOTE | 2018-12-04 17:23 | NUR ---
PT RESTING IN BED WITH NO APPARENT SIGNS OF DISTRESS. RESPIRATIONS EQUAL AND UNLABORED. ON 2L O2 VIA NC, PT DENIES CP. NSR ON CONTENT DIRECTOR. PT DENIES CP. NO ACUTE SKIN CHANGES NOTED. BED IN LOW POSITION. CALL LIGHT IN REACH. FAMILY PRESENT AT BEDSIDE. WILL CONT TO MONITOR
--- NOTE | 2018-12-04 17:45 | NUR ---
BLOOD TRANSFUSION INITIATED AT THIS TIME. WILL CONT TO MONITOR PT CLOSELY. FAMILY PRESENT AT BEDSIDE.
--- NOTE | 2018-12-04 19:16 | NUR ---
ENDORSED PT TO EDIS TICKET BROKER RN. ALL QUESTIONS AND CONCERNS ADDRESSED
--- NOTE | 2018-12-04 19:17 | NUR ---
RECEIVED REPORT FROM AMNA THOMPSON. WILL RESUME CARE.
[2018-12-04 19:25] VITALS: BP 111/57
--- NOTE | 2018-12-04 19:25 | NUR ---
RECEIVED PT AAOX4, SPEECH CLEAR. ABLE TO MAKE NEEDS KNOWN AND FOLLOW COMMANDS. PUPILS 3MM BRISK. BREATHING E/U. ON 2L NC, O2 SAT 97%. LUNG SOUNDS HAVE WHEEZES TO UPPER LOBES AND DIMINISHED TO BASES. S1S2 AUSCULATATED WITH NO MURMURS NOTED. PT STATES NO CHEST PAIN AT THIS TIME. NO REDNESS, SWELLING, OR DRAINAGE NOTED TO EENT. CAP REFILL < 3SEC. NO EDEMA NOTED. PULSES PALPABLE. MILD GENERALIZED WEAKNESS. JOINTS INTACT. NO CONTRACTURES NOTED. ABDOMEN ROUND, NONTENDER. BS ACTIVE X 4. ON CARDIAC DIET. NO N/V. USES BEDSIDE COMMODE WITH YELLOW URINE NOTED. NO BM AT THIS TIME. BED IN LOW POSITION. CALL LIGHT WITHIN REACH. WILL CONTINUE TO MONITOR.
[2018-12-04 23:36] VITALS: BP 109/58
--- NOTE | 2018-12-05 02:29 | NUR ---
JOURDAN RT AT [facility] ASSESSING PT AND GIVING BREATHING TREATMENT. PT TOLERATING WELL.
[2018-12-05 03:43] VITALS: BP 124/67
--- NOTE | 2018-12-05 04:15 | NUR ---
PT CLEANED. GOWN AND ALL LINENS CHANGED.
--- NOTE | 2018-12-05 05:48 | NUR ---
TRIAGE SPECIALIST AT BEDSIDE FOR BLOOD DRAW.
--- NOTE | 2018-12-05 05:53 | NUR ---
DR. BARBER AT BEDSIDE ASSESSING. UPDATES PROVIDED.
[2018-12-05 06:01] LABS: PLATELET COUNT 168 x10^3mcL (130-400)
[2018-12-05 06:02] LABS: BASOPHIL % 0 % (0-2); RED CELL DISTRIBUTION WIDTH 16.1 % (11.5-14.5)
[2018-12-05 06:15] LABS: CARBON DIOXIDE 22.6 mmol/L (21-32); CHLORIDE SERUM 109 mmol/L (98-107); CREATININE SERUM 0.7 mg/dL (0.6-1.0); GLUCOSE SERUM 318 mg/dL (74-106); MAGNESIUM 2.3 mg/dL (1.8-2.4); PHOSPHOROUS 2.4 mg/dL (2.5-4.9); POTASSIUM SERUM 3.9 mmol/L (3.5-5.1); SODIUM SERUM 142 mmol/L (136-145)
[2018-12-05 07:20] VITALS: BP 129/63
--- NOTE | 2018-12-05 07:20 | NUR ---
RECEIVED REPORT FROM EDIS THOMPSON. UPDATES PROVIDED, ALL QUESTIONS ANSWERED AND ADDRESSED. WILL ASSUME CARE
--- NOTE | 2018-12-05 10:02 | NUR ---
RECEIVED PT AAOX4. ABLE TO FOLLOW COMMANDS AND MAKE NEEDS KNOWN. PERRL. SPEECH IS CLEAR AND APPROPRIATE FOR AGE. NO FACIAL DROOP. SMILE IS SYMMETRICAL. EENT FREE OF DISCHARGE. ON 2L NASAL CANNULA. BREATHING E/U. SYMMETRICAL CHEST WALL EXPANSION NOTED. WHEEZES TO BUL, DIM TO BLL. NO S/S OF RESP DISTRESS. NSR ON CONSTRUCTION SKILLS TEACHER. HR = 81. CARDIZEM GTT REMAINS OFF. MOD PALPABLE PULSES X4. CAP REFILL <3 SEC. NO EDEMA. SKIN IS WARM/DRY TO TOUCH, PALE IN COLOR AND CONSISTENT WITH ETHNICITY. PIV TO R FA INTACT, PORT PATENT, DRESSING CDI. NS INFUSING @ 100 ML/HR. ABD IS SOFT, SYMMETRICAL, ROUNDED AND NONTENDER. ACTIVE BOWEL SOUNDS X4. NO BM AT THIS TIME. VOIDS FREELY VIA BSC. NO VAGINAL BLEEDING OR DISCHARGE NOTED. GEN WEAKNESS NOTED. FULL ROM TO ALL EXTREMITIES. BED IN LOWEST POSITION, HOB 45 DEGREES, X3 SIDE RAILS UP, CALL LIGHT WITHIN REACH. AT BEDSIDE.
--- NOTE | 2018-12-05 10:17 | NUR ---
ATTENDING AND RESIDENTS AT BEDSIDE ASSESSING PT. UPDATES PROVIDED, ALL QUESTIONS ANSWERED AND ADDRESSED. PT OKAY TO BE TRANSFERRED TO TELE. WILL CARRY OUT ORDERS ONCE RECEIVED.
[2018-12-05 10:32] VITALS: BP 121/58
[2018-12-05 11:21] VITALS: BP 112/56
--- NOTE | 2018-12-05 13:45 | NUR ---
ASSISTED PT IN AMBULATING TO BEDSIDE COMMODE TO VOID. GAIT STEADY. VSS. 2L NASAL CANNULA REMAINS ON. ASSISTED PT BACK TO BED WITH NO COMPLICATIONS. PT WANTING A BREATHING TX. RT CALLED AND WILL BE TO PT'S ROOM SHORTLY. WILL CONT TO MONITOR.
[2018-12-05 15:30] VITALS: BP 114/58
--- NOTE | 2018-12-05 17:00 | NUR ---
TRANSFERRED PT TO BED 257-A WITH TELE BOX WITH NO COMPLICATIONS. AT BEDSIDE.
--- NOTE | 2018-12-05 17:34 | NUR ---
PT TRANSFERRING TO BED 257-A WITH TELE BOX VIA WHEELCHAIR. PORTABLE O2 ACCOMPANYING PT ON 2L NASAL CANNULA. PT'S BELONGINGS WILL BE GOING WITH PT. WILL ASSUME CARE OF PT WHEN TRANSFERRED TO TELEMETRY
--- NOTE | 2018-12-05 18:18 | NUR ---
PT IS SITTING IN HIGH-FOWLERS IN BED, EATING DINNER. AAOX4. ABLE TO MAKE NEEDS KNOWN. NO FACIAL DROOP NOTED. NO UNILATERAL WEAKNESS. REMAINS ON 2L NASAL CANNULA. BREATHING E/U. SYMMETRICAL CHEST WALL EXPANSION. NO S/S OF RESP DISTRESS OR CP AT THIS TIME. ON TELE BOX #34. PIV TO R FA INTACT, PORT PATENT, DRESSING CDI. NS INFUSING @ 100 ML/HR. AT BEDSIDE ASSISTING PT IN EATING DINNER. X3 SIDE RAILS UP, BED IN LOWEST POSITION, CALL LIGHT WITHIN REACH AND INSTRUCTED ON IF IN NEED OF ASSITANCE.
--- NOTE | 2018-12-05 18:35 | NUR ---
PT AMBULATED TO THE RESTROOM TO VOID ACCOMPANIED BY 2 FRUIT RECEIVER'S. PT AMBULATED BACK TO BED WITH NO COMPLICATIONS. PT ASKING FOR A BREATHING TX. RT CALLED AT THIS TIME. WILL CONT TO MONITOR.
--- NOTE | 2018-12-05 20:34 | NUR ---
PATIENT RECEIVED AWAKE, ALERT, ORIENTED X3, FORGETFUL AT TIMES. RESPIRATION EVEN AND UNLABORED, ON O2 2L PER NASAL CANNULA, ON RT PROTOCOL. ONGOING 0.9% NS AT 100 CC/HR INFUSING WELL AT THE RT FOREARM. DENIES PAIN AT THIS TIME. LBM 12/04/18/. VOIDING FREELY WITH ASSIST. GENERALIZED WEAKNESS TO EXTREMITIES, AMBULATES WITH ASSIST. SKIN DRY AND INTACT. ON TELE #34. WILL CONTINUE TO MONITOR.
[2018-12-05 21:19] VITALS: BP 124/55
[2018-12-06 04:57] VITALS: BP 116/52
--- NOTE | 2018-12-06 05:55 | NUR ---
PATIENT RESTING IN BED. RESPIRATION EVEN AND UNLABORED, OCC EXPIRATORY WHEEZING NOTED, BREATHING TREATMENT GIVEN BY RT ORDERED, ON O2 2L PER NASAL CANNULA. IV SITE NO SIGN OF INFILTRATION. NO SIGN OF HYPO/HYPERGLYCEMIA. ASSISTED WITH NEEDS. SAFETY OBSERVED. PLACED BED IN THE LOWEST POSITION. PLACED CALL LIGHT WITHIN REACH AT ALL TIMES.
[2018-12-06 06:38] LABS: CALCIUM 7.9 mg/dL (8.5-10.1); CARBON DIOXIDE 25.3 mmol/L (21-32); CHLORIDE SERUM 110 mmol/L (98-107); CREATININE SERUM 0.8 mg/dL (0.6-1.0); GLUCOSE SERUM 284 mg/dL (74-106); MAGNESIUM 2.2 mg/dL (1.8-2.4); PHOSPHOROUS 2.3 mg/dL (2.5-4.9); POTASSIUM SERUM 3.7 mmol/L (3.5-5.1); SODIUM SERUM 142 mmol/L (136-145)
[2018-12-06 06:40] LABS: BASOPHIL % 0.1 % (0-2); PLATELET COUNT 191 x10^3mcL (130-400)
[2018-12-06 07:27] LABS: RED CELL DISTRIBUTION WIDTH 16.5 % (11.5-14.5)
--- NOTE | 2018-12-06 07:46 | NUR ---
PT A/A SITTING ON BED. PT ON 2L/ NC. PT C/O SOB. CALLED RESPIRATORY FOR BREATHING TX. IVF RUNNING AT 100 ML/HR. NO REDNESS/ SWELLING TO IV SITE. BED IN LOW POSITION, CALL LIGHT IN REACH, FALL/ SAFETY PRECAUTIONS IN PLACE. WILL CONTINUE TO MONITOR
[2018-12-06 08:17] VITALS: BP 127/68
[2018-12-06 12:08] VITALS: BP 132/68
[2018-12-06 12:47] VITALS: BP 132/68
[2018-12-06] MEDS ORDERED: LEVAQUIN500 M1 PO (13:51)
[2018-12-06] MEDS ORDERED: DILTIAZEM HCL120 M2 PO (13:52)
[2018-12-06] MEDS ORDERED: ELIQUIS5 MG PO ×2 (14:05→14:32)
[2018-12-06] MEDS ORDERED: ALTACE2.5 M1 PO (14:09)
[2018-12-06] MEDS ORDERED: LEVOFLOXACIN500 M1 PO ×2 (14:12→14:29)
[2018-12-06] MEDS ORDERED: PREDNISONE20 MG PO (14:16)
[2018-12-06] MEDS ORDERED: RAMIPRIL2.5 MG PO (14:32)
--- NOTE | 2018-12-06 16:03 | NUR ---
PT DC'D HOME, A/A, ORIENTED X4. PT ON PORTABLE OXYGEN, 2L VIA NC. NO ACUTE DISTRESS/ PAIN NOTED. EDUCATION PROVIDED TO PT AND , BOTH PT AND VERBALIZED UNDERSTANDING. NEW RX GIVEN TO PT. F/U APPT DISCUSSED WITH PT. IV REMOVED WITH CATHETER INTACT. NO REDNESS/ SWELLING AT IV SITE. PT BROUGHT DOWN TO LOBBY BY W/C, ACCOMPANIED BY AND REMOTE CODERS. ALL BELONGINGS WITH PT
== END 2018-12-06 16:03 | disposition home or self-care (01) | DRG 871 ==
LOC: ED 15:49 → DU 18:10 → IC 18:10 → DU 19:54 → IC 12-04 07:31 → DU 12-05 17:04
PROVIDERS: Emergency Medicine; Family Medicine; ADMIT Internal Medicine
DX: A41.51 Sepsis due to Escherichia coli [E. coli] (principal); J69.0 Pneumonitis due to inhalation of food and vomit; J96.20 Acute and chronic respiratory failure, unspecified whether with hypoxia or hypercapnia; J44.1 Chronic obstructive pulmonary disease with (acute) exacerbation; E44.1 Mild protein-calorie malnutrition; E87.1 Hypo-osmolality and hyponatremia; E11.9 Type 2 diabetes mellitus without complications; I48.91 Unspecified atrial fibrillation; I35.0 Nonrheumatic aortic (valve) stenosis; E78.5 Hyperlipidemia, unspecified; M19.90 Unspecified osteoarthritis, unspecified site; Z98.82 Breast implant status; Z68.23 Body mass index [BMI] 23.0-23.9, adult; Z87.891 Personal history of nicotine dependence; F03.90 Unspecified dementia, unspecified severity, without behavioral disturbance, psychotic disturbance, mood disturbance, and anxiety; Z79.84 Long term (current) use of oral hypoglycemic drugs
CPT/HCPCS: 36600; 82962; 83880; 87804; 90658; 97116-GP; G0378; J0456; J0696; J1644; J1956; J2543; J2920; J3490; J7030; J7050; J7060; J7620; J7626; Q0092

== ENCOUNTER 2018-12-10 23:20 | Emergency (ER) | payer OTHER ==
[~2018-12-10] VITALS: Ht 172.7 cm; Wt 71.7 kg
[~2018-12-10 23:20] MED LIST changes: +ADVAIR DISKUS 51 AER; +ALTACE2.5 M1 PO; +ASPIRIN ADULT L81 M5 PO; +DILTIAZEM HCL120 M2 PO; +DONEPEZIL HYDROC5 M3 PO; +ELIQUIS5 MG PO; +LEVAQUIN500 M1 PO; +LEVOFLOXACIN500 M1 PO; +LIPITOR40 MG PO; +NATURE'S BLEND F1 MG PO; +POTASSIUM CHLO10 ME2 PO; +PREDNISONE1 MG PO; +RAMIPRIL2.5 MG PO; +SPIRIVA18 MC1; +VERAPAMIL HCL180 M1
[2018-12-10 23:31] VITALS: Ht 172.7 cm; Wt 71.7 kg
[2018-12-11 00:21] LABS: BASOPHIL % 0.1 % (0-2); PLATELET COUNT 328 x10^3mcL (130-400)
[2018-12-11 00:25] LABS: RED CELL DISTRIBUTION WIDTH 16.6 % (11.5-14.5)
[2018-12-11 00:49] LABS: CALCIUM 8.7 mg/dL (8.5-10.1); CARBON DIOXIDE 35.1 mmol/L (21-32); CHLORIDE SERUM 103 mmol/L (98-107); CREATININE SERUM 0.8 mg/dL (0.6-1.0); GLUCOSE SERUM 136 mg/dL (74-106); POTASSIUM SERUM 3.8 mmol/L (3.5-5.1); SODIUM SERUM 141 mmol/L (136-145)
[2018-12-11 00:54] LABS: ALKALINE PHOSPHATASE 108 U/L (46-116); ALT/SGPT 41 U/L (14-59); AST/SGOT 14 U/L (15-37); BILIRUBIN TOTAL 0.37 mg/dL (0.20-1.00)
[2018-12-11 01:15] LABS: ALBUMIN 2.5 g/dL (3.4-5.0); TOTAL PROTEIN, SERUM 6.1 g/dL (6.4-8.2)
[2018-12-11 03:30] VITALS: BP 135/62
== END 2018-12-11 03:30 | disposition home or self-care (01) ==
LOC: ED 23:20
PROVIDERS: Emergency Medicine
DX: E11.649 Type 2 diabetes mellitus with hypoglycemia without coma (principal); J44.9 Chronic obstructive pulmonary disease, unspecified; I10 Essential (primary) hypertension; M19.90 Unspecified osteoarthritis, unspecified site; Z41.1 Encounter for cosmetic surgery; Z91.041 Radiographic dye allergy status; Z91.018 Allergy to other foods
CPT/HCPCS: 36415; 82962; Q0092